=== PATIENT | male | born 1945 | race Caucasian/White ===

== ENCOUNTER → 2020-03-20 09:30 | Outpatient (BNVA) | payer MEDICARE, SELFPAY | PROVIDERS: Family Provider Family Medicine; PCP Family Medicine; Visit Provider Family Medicine | DX: I10 Essential (primary) hypertension (principal); E78.00 Pure hypercholesterolemia, unspecified; I25.10 Atherosclerotic heart disease of native coronary artery without angina pectoris; M17.10 Unilateral primary osteoarthritis, unspecified knee; M62.838 Other muscle spasm; M54.5 Low back pain; G89.29 Other chronic pain | CPT/HCPCS: 80053; 80061; 83735 ==

== ENCOUNTER → 2020-12-17 11:28 | Outpatient (BNVA) | payer MEDICARE, SELFPAY | PROVIDERS: Family Provider Family Medicine; PCP Family Medicine; Visit Provider Family Medicine | DX: I10 Essential (primary) hypertension (principal); J30.9 Allergic rhinitis, unspecified; I25.10 Atherosclerotic heart disease of native coronary artery without angina pectoris; M62.838 Other muscle spasm; E78.00 Pure hypercholesterolemia, unspecified; J41.0 Simple chronic bronchitis; J30.89 Other allergic rhinitis; E78.5 Hyperlipidemia, unspecified; E87.5 Hyperkalemia | CPT/HCPCS: 80048 ==

== ENCOUNTER → 2021-01-29 08:43 | Outpatient (BNVA) | payer MEDICARE, SELFPAY | PROVIDERS: Family Provider Family Medicine; PCP Family Medicine; Visit Provider Family Medicine | DX: I25.10 Atherosclerotic heart disease of native coronary artery without angina pectoris (principal); R73.09 Other abnormal glucose | CPT/HCPCS: 80061; 83036 ==

== ENCOUNTER → 2021-05-20 09:56 | Outpatient (BNVA) | payer BC, SELFPAY | PROVIDERS: Family Provider Family Medicine; PCP Family Medicine; Visit Provider Family Medicine | DX: I10 Essential (primary) hypertension (principal); J30.9 Allergic rhinitis, unspecified; I25.10 Atherosclerotic heart disease of native coronary artery without angina pectoris; J41.0 Simple chronic bronchitis; E78.00 Pure hypercholesterolemia, unspecified; E11.9 Type 2 diabetes mellitus without complications; I16.0 Hypertensive urgency; J30.89 Other allergic rhinitis; Z12.11 Encounter for screening for malignant neoplasm of colon | CPT/HCPCS: 83036 ==

== ENCOUNTER → 2021-08-14 17:09 | Outpatient (BNVA) | payer MEDICARE, SELFPAY | PROVIDERS: Family Provider Family Medicine; PCP Family Medicine; Visit Provider Family Medicine | DX: R42 Dizziness and giddiness (principal); J44.9 Chronic obstructive pulmonary disease, unspecified; E03.9 Hypothyroidism, unspecified; E11.9 Type 2 diabetes mellitus without complications; I10 Essential (primary) hypertension | CPT/HCPCS: 80053; 82607; 83036; 84443; 85025 ==

== ENCOUNTER → 2022-05-15 09:40 | Outpatient (BNVA) | payer MEDICARE, MEDICAID, SELFPAY | PROVIDERS: Family Provider Family Medicine; PCP Family Medicine; Visit Provider Family Medicine | DX: I10 Essential (primary) hypertension (principal); E11.9 Type 2 diabetes mellitus without complications; E78.5 Hyperlipidemia, unspecified; Z23 Encounter for immunization; J41.0 Simple chronic bronchitis; I25.10 Atherosclerotic heart disease of native coronary artery without angina pectoris; J30.9 Allergic rhinitis, unspecified; E78.00 Pure hypercholesterolemia, unspecified; J30.89 Other allergic rhinitis | CPT/HCPCS: 80053; 80061; 83036 ==

== ENCOUNTER → 2022-11-25 08:27 | Outpatient (BNVA) | payer MEDICARE, MEDICAID, SELFPAY | PROVIDERS: Family Provider Family Medicine; PCP Family Medicine; Visit Provider Family Medicine | DX: I25.10 Atherosclerotic heart disease of native coronary artery without angina pectoris (principal); J41.0 Simple chronic bronchitis; I10 Essential (primary) hypertension; J30.9 Allergic rhinitis, unspecified; E78.00 Pure hypercholesterolemia, unspecified; E11.9 Type 2 diabetes mellitus without complications; E78.5 Hyperlipidemia, unspecified; K21.00 Gastro-esophageal reflux disease with esophagitis, without bleeding | CPT/HCPCS: 80048; 83036 ==

== ENCOUNTER → 2023-03-17 15:17 | Outpatient (BNVA) | payer MEDICARE, MEDICAID, SELFPAY | PROVIDERS: Family Provider Family Medicine; PCP Family Medicine; Visit Provider Nurse Practitioner Family | DX: S99.921A Unspecified injury of right foot, initial encounter (principal); X58.XXXA Exposure to other specified factors, initial encounter | CPT/HCPCS: 73630 ==

== ENCOUNTER → 2023-03-19 11:07 | Outpatient (BNVA) | payer MEDICARE, MEDICAID, SELFPAY | PROVIDERS: Family Provider Family Medicine; PCP Family Medicine; Visit Provider Family Medicine | DX: Z00.00 Encounter for general adult medical examination without abnormal findings (principal); Z71.89 Other specified counseling; E11.9 Type 2 diabetes mellitus without complications; S99.921A Unspecified injury of right foot, initial encounter; X58.XXXA Exposure to other specified factors, initial encounter | CPT/HCPCS: 80053; 83036; 85025 ==

== ENCOUNTER → 2023-03-24 09:11 | Outpatient (BNVA) | payer MEDICARE, MEDICAID, SELFPAY | PROVIDERS: Family Provider Family Medicine; PCP Family Medicine; Visit Provider Family Medicine | DX: S97.81XA Crushing injury of right foot, initial encounter (principal); X58.XXXA Exposure to other specified factors, initial encounter | CPT/HCPCS: 73630 ==

== ENCOUNTER → 2023-04-23 09:54 | Outpatient (BNVA) | payer MEDICARE, MEDICAID, SELFPAY | PROVIDERS: Family Provider Family Medicine; PCP Family Medicine; Referring Provider Family Medicine; Visit Provider Student in an Organized Health Care Education/Training Program | DX: M65.341 Trigger finger, right ring finger | CPT/HCPCS: 73130; 99204 ==

== ENCOUNTER 2023-05-21 06:01 | Day surgery (SDC) | payer MEDICARE, MEDICAID, SELFPAY ==
[2023-05-21] VITALS (7 sets, daily range): BP systolic 119–158; BP diastolic 66–93; PULSE 5–65; RESP 16–18; TEMP 36.2–36.5; O2SAT 93–96; BMI 32.3
[2023-05-21] MEDS: ketorolac 30 mg/mL INJ IVP (06:28)
[2023-05-21] MEDS: sodium chloride 0.9% 1,000 ML 30 ML IV (06:29)
[2023-05-21] MEDS: acetaminophen 1,000 MG/100 ML PIGGYBACK 400 MG IV (06:29)
--- NOTE | 2023-05-21 06:54 | P.ANESASSM_ITS ---
Pre-Anesthetic Assessment Height/Weight: Height 1.68 m Weight 90.718 kg Temp Pulse Resp BP Pulse Ox O2 Del Method 97.2 F L 65 18 149/74 96 Room Air 05/21/23 06:11 05/21/23 06:11 05/21/23 06:11 05/21/23 06:11 05/21/23 06:11 05/21/23 06:12 Preop Diagnosis: right ring finger trigger Operation Date: 05/21/23 07:30 Proposed Procedures p Trigger Finger Release(Right) - Hector Lasalle, DO Familial anesthetic complications: None Was Beta Bebe taken within 24 hours: Yes Was Clonidine taken within 24 hours: N/A Last intake: Intake Last Liquid Date 05/20/23 Last Liquid Time 18:00 Last Solid Date 05/20/23 Last Solid Time 18:00 Social No alcohol and No tobacco former smoker Exam alert, oriented x 3, clear to auscultation bilaterally and regular rate & rhythm Airway Mallampati: Class III Dentition: other (none) Pulmonary Chronic Obstructive Pulmonary Disease (patient denies COPD (listed in hx)) CV/HEM Coronary Artery Disease (LAD stent in 1995, no issues with heart since, denies Chest Pain), Hypertension and Myocardial Infarction AAA endovascular stent Metabolic Diabetes Mellitus Anesthetic Plan ASA status: 3 Anesthesia: MAC Risk of > 500 ml blood loss (7ml/kg in children): No Medications/Allergies Home Medications Medication Instructions Recorded Confirmed Last Taken Type blood-glucose meter (Blood Glucose #1 ea 05/20/21 05/06/23 Unknown Rx Monitoring kit) albuterol sulfate 90 mcg/actuation 2 puff inhalation .at bedtime 30 11/25/22 05/20/23 Unknown Rx aerosol inhaler (ProAir HFA) days #18 grams atenolol 25 mg tablet 25 mg PO DAILY 90 days #90 tabs 11/25/22 05/21/23 05/21/23 03:00 Rx fluticasone propionate 50 1 spray intranasal Q12H #15.8 mL 11/25/22 05/20/23 Unknown Rx mcg/actuation nasal spray,suspension hydrochlorothiazide 25 mg tablet 25 mg PO QAM 90 days #90 tabs 11/25/22 05/21/23 05/21/23 03:00 Rx loratadine 10 mg tablet 10 mg PO .at bedtime 90 days #90 11/25/22 05/20/23 05/19/23 Rx tabs losartan 100 mg tablet 100 mg PO DAILY 90 days #90 tabs 11/25/22 05/20/23 1 07/20/22 Rx lovastatin 40 mg tablet See Rx Instructions .Route 11/25/22 05/20/23 05/19/23 Rx .COMPLEX 90 days #90 tabs alcohol swabs 1 pad topical TID PRN as needed to 03/21/23 05/20/23 05/20/23 Rx check blood sugar 30 days #100 ea blood sugar diagnostic (Blood #50 ea 03/21/23 05/06/23 Unknown Rx Glucose Test strips) lancets #100 ea 03/21/23 05/06/23 Unknown Rx Allergies Allergy/AdvReac Type Severity Reaction Status Date / Time No Known Allergies Allergy Verified 05/21/23 06:16 Current Medications Generic Name Dose Route Start Last Admin Trade Name Freq PRN Reason Stop Dose Admin Sodium Chloride 1,000 mls @ 30 mls/hr 05/21/23 06:15 05/21/23 06:29 Sodium Chloride 0.9% IV 05/22/23 06:14 30 mls/hr .Q24H GAYLE Administration PFSH Anesthesia Medical History Arthritis of knee CAD (coronary artery disease) Chronic low back pain COPD (chronic obstructive pulmonary disease) Dyslipidemia Femoral artery occlusion, right Hypertension Surgical History History of repair of aneurysm of abdominal aorta using endovascular stent graft Family History Mother Myocardial infarction Diabetes Brother Diabetes Other CAD (coronary artery disease) Denies family history of Stroke Social History Smoking and tobacco/nicotine status: former use of tobacco/nicotine Alcohol intake: never Substance/Drug Use: never Current gender identity: Male Data Anesthesia Cardiac Studies: No Data to Display
--- NOTE | 2023-05-21 06:59 | W.PM.OPSUD ---
Surgery/Procedure H&P Update DATE OF PROCEDURE: May 21, 2023 DATE H&P PERFORMED: 04/23/23 H&P UPDATE INFORMATION: I have reviewed H&P completed within last 30 days, I have examined patient prior to procedure and No changes to prior documentation PREOP DIAGNOSIS: right ring finger trigger PRIMARY INDICATION FOR PROCEDURE: Right ring finger trigger PLANNED PROCEDURE: Operation Date: 05/21/23 07:30 Proposed Procedures p Trigger Finger Release(Right) - Hector Velez DO
[2023-05-21 07:38] LABS: Glucose Point of Care 149 mg/dL (70-110)
[2023-05-21] MEDS: ceFAZolin 2,000 MG in sodium chloride 0.9% (plus) 50 ML 100 MG IV (07:42)
[2023-05-21] MEDS: BUPivacaine 0.5% INJ 10 mL INJECTION (08:07)
[2023-05-21] MEDS: ROPivacaine 0.5% SDV 30 mL 150 MG INJECTION (08:07)
--- NOTE | 2023-05-21 08:14 | P.OP_ITS ---
Operative Report Date of procedure: May 21, 2023 Surgeon: Hector Velez DO Procedure: Preoperative diagnosis: Right ring finger trigger Post-op diagnosis: Same Procedure done: Right ring finger?trigger?release Surgeon: Hector Velez DO Estimated blood loss: 1cc Tourniquet time 7mins Complications: None Condition: stable Disposition: same day Brief History: Patient's been seen and worked up in the outpatient setting and findings consistent with preoperative diagnosis of right ring finger?trigger.? He is failed conservative treatment.? Continues to have mechanical locking and catching.? Severe pain as well.? We talked about treatment options nonoperative versus operative intervention.? ?Patient understands the risk benefits complication alternatives of surgical nonsurgical treatment options.? Understanding his risks with surgery he elects proceed with surgical intervention.? Consent obtained in the office.? Here today to proceed with surgical intervention.? All questions answered. Procedure: Patient was seen and evaluated in the preoperative holding area.? Consent was reviewed and signed with patient.? Seen evaluated by Anesthesia Department.? Once cleared for surgery was brought back to the operative suite.? Placed in supine position on the OR table all bony prominences well-padded patient properly secured to the bed.? Patient's right arm was then placed to the armboard.? A nonsterile tourniquet applied to the right upper arm.? Patient's right upper extremity was then prepped and draped in standard orthopedic fashion.? Final timeout performed.? Patient received appropriate preoperative antibiotics. Esmarch tourniquet was used exsanguinate the right upper extremity tourniquet insufflated to 250 mmHg. Under sterile aseptic technique local digital block was performed to the right ring finger.? Once appropriately anesthetized a standard oblique incision was made centering over the A1 pramod following patient's flexor crease.? Sharp scalpel incision was made only through skin and then switched to Littler dissection scissors and spread longitudinally directly over the flexor tendon sheath.? I then mobilized both radially and ulnarly and Kasdan retractors were u sed and placed by my assistant sales director to protect neurovascular bundle.? Next I visualized the A1 pramod and this was incised with a scalpel.? I then switched to dissection scissors and released the A1 pramod both proximally as well as distally to its entirety.? Significant tendon sheath fluid was noted consistent with inflammation.? Mild fraying of the flexor tendons noted but no tear.? At this point I utilized a rag nail and pulled the tendons FDS and FDP out of the incision and no?triggering was noted.? I then had anesthesia wake up the patient and patient was able to actively flex and extend with no?triggering.? This point thorough irrigation was performed.? Tourniquet deflated hemostasis satisfactory with bipolar.? I then subsequently closed the incision with interrupted nylon suture.? Xeroform 4 x 4's, Kerlix and an Gage wrap was applied for a bulky soft dressing.? Patient was then subsequently awakened from anesthesia and taken to PACU in stable condition tolerated procedure without issues. Disposition: Patient taken back in stable condition recovering well.? Patient will receive appropriate discharge instruction as well as pain medication postoperatively.? Patient to follow-up with me in the office in 2 weeks for repeat evaluation and incision check.? Patient understands that any questions or concerns and contact the office.? All questions answered.
--- NOTE | 2023-05-21 08:14 | P.BOP_ITS ---
Date of Procedure: 05/21/2023 Surgeon: Hector Velez DO Molten Iron Pourer(s): COREY Arteaga Procedure(s) performed: Right ring finger trigger release Findings of the procedure(s): Right ring finger trigger procedure went as planned Estimated blood loss: 1 cc Specimen(s) removed: None Post-operative diagnosis: Right ring finger trigger
--- NOTE | 2023-05-21 09:20 | ANE.PACU2 ---
Inpatient post-anesthesia follow up: Airway intact: Yes Vital signs: Temperature 97.6 F Pulse Rate 5 Respiratory Rate 18 Blood Pressure 158/84 Pulse Oximetry 94 Oxygen Delivery Me thod Room Air Oxygen Flow Rate 6 Fraction of Inspir ed Oxygen Hydration adequate: Yes Nausea and vomiting: No Pain level: 1 Mental status: Baseline
== END 2023-05-21 09:20 | disposition home or self-care (01) ==
PROVIDERS: PCP Family Medicine; Visit Provider Student in an Organized Health Care Education/Training Program
PROC: (CPT 26055; principal; 2023-05-21 07:30)
DX: M65.341 Trigger finger, right ring finger (principal); J44.9 Chronic obstructive pulmonary disease, unspecified; I25.10 Atherosclerotic heart disease of native coronary artery without angina pectoris; Z95.5 Presence of coronary angioplasty implant and graft; I10 Essential (primary) hypertension; I25.2 Old myocardial infarction; E11.9 Type 2 diabetes mellitus without complications; E78.5 Hyperlipidemia, unspecified; Z87.891 Personal history of nicotine dependence
CPT/HCPCS: 26055; 36416; 82962; J0131; J0690; J1885; J2704; J2795; J3010; J3490; J7030

== ENCOUNTER → 2023-06-05 09:00 | Outpatient (BNVA) | payer MEDICARE, MEDICAID, SELFPAY | PROVIDERS: PCP Family Medicine; Visit Provider Physician Assistant | DX: Z98.890 Other specified postprocedural states (principal) | CPT/HCPCS: 99024 ==

== ENCOUNTER → 2023-08-27 11:28 | Outpatient (BNVA) | payer MEDICARE, MEDICAID, SELFPAY | PROVIDERS: PCP Family Medicine; Visit Provider Family Medicine | DX: H81.20 Vestibular neuronitis, unspecified ear (principal); R42 Dizziness and giddiness; I10 Essential (primary) hypertension; E78.5 Hyperlipidemia, unspecified; E11.9 Type 2 diabetes mellitus without complications; J06.9 Acute upper respiratory infection, unspecified; Z79.899 Other long term (current) drug therapy | CPT/HCPCS: 80053; 80061; 82607; 83036; 83735; 84443; 85025 ==

== ENCOUNTER → 2023-12-15 08:56 | Outpatient (BNVA) | payer MEDICARE, SELFPAY | PROVIDERS: PCP Family Medicine; Visit Provider Family Medicine | DX: E11.9 Type 2 diabetes mellitus without complications (principal); I25.10 Atherosclerotic heart disease of native coronary artery without angina pectoris; I10 Essential (primary) hypertension; J30.9 Allergic rhinitis, unspecified; E78.00 Pure hypercholesterolemia, unspecified; J30.89 Other allergic rhinitis; E78.5 Hyperlipidemia, unspecified | CPT/HCPCS: 83036 ==

== ENCOUNTER → 2024-06-14 08:42 | Outpatient (BNVA) | payer MEDICARE, SELFPAY | PROVIDERS: PCP Family Medicine; Visit Provider Family Medicine | DX: E11.9 Type 2 diabetes mellitus without complications | CPT/HCPCS: 80053; 80061 ==

== ENCOUNTER → 2025-01-26 10:45 | Outpatient (BNVA) | payer MEDICARE, SELFPAY | PROVIDERS: PCP Family Medicine; Visit Provider Family Medicine | DX: I10 Essential (primary) hypertension (principal); E11.9 Type 2 diabetes mellitus without complications; K29.30 Chronic superficial gastritis without bleeding; S61.210D Laceration without foreign body of right index finger without damage to nail, subsequent encounter | CPT/HCPCS: 80048; 83036 ==